=== PATIENT | male | born 1980 | race African-American/Black ===

== ENCOUNTER 2022-03-30 03:19 | Emergency (ER) | payer BC, SELFPAY ==
[2022-03-30] MEDS ORDERED: Lisinopril 20 MG TAB ONE (04:07)
== END 2022-03-30 04:15 | disposition home or self-care (01) ==
LOC: NAV ERS 03:19
DX: I10 Essential (primary) hypertension (principal); R42 Dizziness and giddiness; R53.1 Weakness
CPT/HCPCS: 93005